=== PATIENT | female | born 1990 | race African-American/Black ===

== ENCOUNTER 2017-12-05 15:45 | Inpatient (IN) | payer BC, OTHER ==
[2017-12-05] VITALS (10 sets, daily range): BP systolic 96–174; BP diastolic 53–973
[~2017-12-05] VITALS: Ht 165.1 cm; Wt 54.4 kg
--- NOTE | ~2017-12-05 | HC ---
[facility] [place] [address] CONSULTATION Name: CHARLENE IRIZARRY Room #: 237-P [facility] IN M.R.#: [id number] Admission: 12/05/17 Attend Phys: Garrick Garcia MD Discharge: Date of : 89 Report #: [id number] THIS REPORT FOR: //name// CC: NO PCP Garrick Garcia ADDENDUM: Regarding the treatment the patient has received during her first overnight stay, she received more insulin than needed plus inadequate fluid intake. The patient's with hyperglycemia and/or ketoacidosis are generally at least 6 or more liters dehydrated and need much more vigorous hydration and very limited insulin. Utilizing insulin for glucose lowering without rehydration can interfere with phosphorus metabolism and subsequent deficient oxygenation in the periphery with adverse side effects. The patient is now receiving vigorous saline hydration to replenish vascular fluids and allow for correction of metabolic abnormalities. <ELECTRONICALLY SIGNED> By: Lenny Deal MD 12/07/17 1742 [id number] Lenny Deal MD /nt
--- NOTE | ~2017-12-05 | HC ---
[facility] [place] [address] CONSULTATION Name: CHARLENE IRIZARRY Room #: 237-P ADM IN M.R.#: [id number] Admission: 12/05/17 Attend Phys: Garrick Garcia MD Discharge: Date of : 89 Report #: [id number] THIS REPORT FOR: //name// CC: NO PCP Garrick Garcia DATE OF SERVICE: 12/06/2017 ENDOCRINE CONSULTATION The patient is at [facility], ICU room 237. SUBJECTIVE: One of several recent admissions for this 27-year-old black female with type 1 diabetes and chronically poor control and chronic poor compliance. The patient states she has had diabetes since she was approximately 12 or 17 years old. She has been on insulin ever since. She does not have a current physician. She does not have health insurance. She has been on a variable dose of aspart insulin t.i.d. with meals and approximately 27 units of Levemir at bedtime. The patient does not follow any specific diet, generally eats 1 or 2 meals per day and snacks frequently. She has limited physical activities. She does not monitor her glucose and does not know when her last A1c was performed or the value. The patient states she began to experience some nausea and vomiting over the 24 hours prior to admission. She also noted and ignored polyuria, polydipsia, fatigue, etc. The patient offers no logical explanation for her chronic poor compliance. Otherwise, patient denies any other chronic medical conditions and does not state any other current medications including any OTF inhibitors or ARBs for renal prophylaxis. She does not remember her last evaluation for lipids, urinary proteinuria or ophthalmology. Since admission, the patient was treated with limited fluids and aggressive insulin. She is also on enoxaparin, acetaminophen, ondansetron, and has been given aspart insulin. THE PATIENT STATES SHE HAS AN "ALLERGY" TO LISPRO INSULIN, but is unable to further elaborate the details of how that was discovered or any other information. Otherwise, the patient is unable to provide any useful prior past or family medical history. OBJECTIVE: LABORATORY DATA: As per chart, hemoglobin A1c has not been performed. The pH (venous, not arterial) was 7.139. The patient initially had some hyperphosphatemia, which has resolved with limited rehydration. The patient's total fluid has been approximately 3 liters since admission. PHYSICAL EXAMINATION: GENERAL: Thin, 27-year-old black female, in no acute distress. The patient is alert and oriented x 3. [address] [address] CONSULTATION Name: CHARLENE IRIZARRY Room #: 237-P [facility] IN M.R.#: [id number] Admission: 12/05/17 Attend Phys: Garrick Garcia MD Discharge: Date of : 89 Report #: [id number] VITAL SIGNS: She is afebrile, heart rate 67 and regular, blood pressure 100/70. SKIN: Warm and moist with decreased turgor. CHEST: Clear to P and A. HEART: Regular rhythm without murmurs, rubs or gallops. ABDOMEN: Benign. EXTREMITIES: There is no edema, cyanosis or clubbing. NEUROLOGIC: Grossly intact. ASSESSMENT: Type 1 diabetes, in chronic poor control with chronic poor compliance. PLAN: 1. I have had a long discussion with the patient about the risks she is causing to her own health and wellbeing by being noncompliant with diabetes and also the unnecessary healthcare expenses compared to much lower expense of strips and followup visits. 2. Will evaluate prior control with hemoglobin A1c. 3. Will place the patient on appropriate diet. Monitor glucose and readjust insulin as needed switching from the hospital's usual lispro to aspart because of her stated allergy. Will also use glargine insulin, which is a true basal insulin rather than the patient's prior Levemir. 4. Will also monitor electrolytes, particularly potassium and phosphorus to ensure that lab abnormalities are resolved and the patient clears her acidosis. There is no determination of serum ketones as yet. Thank you very much for this consultation. I will continue to follow the patient with you on an attempted management and education of diabetes mellitus. <ELECTRONICALLY SIGNED> By: Lenny Deal MD 12/07/17 1742 [id number] Lenny Deal MD /nt
[2017-12-05] MEDS ORDERED: LEVEMIR SUBQ (16:05)
[2017-12-05] MEDS ORDERED: NOVOLOG100 UNIT/1 SUBQ (16:05)
[2017-12-05 16:08] LABS: ABSOLUTE NEUTROPHILS 10.5 thou/uL (1.4-8.2); BASOPHILS 0.3 % (0.0-2.0); HEMATOCRIT 44.1 % (37.0-47.0); HEMOGLOBIN 14.7 gm/dL (12.0-15.0); LYMPHOCYTES 13.4 % (24.0-44.0); MCHC 33.4 g/dL (28.0-37.0); MCV 95.9 fL (80.0-100.0); PLATELET COUNT 335 thou/uL (150-400); POLYS 80.3 % (36.0-66.0); RDW 14.1 % (10.5-14.5); WBC 13.1 thou/uL (4.0-11.0)
[2017-12-05 16:45] LABS: ALBUMIN 4.1 g/dL (3.4-5.0); CALCIUM 9.4 mg/dL (8.5-10.1); CREATININE 1.2 mg/dL (0.6-1.0); DIRECT BILIRUBIN 0.2 mg/dL (<0.1-0.3); POTASSIUM 4.9 mmol/L (3.5-5.1); TOTAL PROTEIN 8.3 g/dL (6.4-8.2)
[2017-12-05 17:15] LABS: URINE BILIRUBIN NEGATIVE (Negative); URINE BLOOD NEGATIVE (Negative); URINE CLARITY CLEAR; URINE COLOR YELLOW; URINE GLUCOSE-RANDOM* 3+ (Negative); URINE KETONES 3+ (Negative); URINE LEUKOCYTES NEGATIVE (Negative); URINE NITRITE NEGATIVE (Negative); URINE PROTEIN (DIPSTICK) NEGATIVE (Negative); URINE UROBILINOGEN 0.2 E.U./dl (0.2-1.0)
[2017-12-05 17:20] LABS: BE(vivo) -17.4 mmol/L (-2 to +3); HCO3 10.4 mmol/L (22.0-26.0); PCO2 VENOUS 31.3 mmHg (41.0-51.0)
[2017-12-05 19:27] LABS: MAGNESIUM 1.7 mg/dL (1.8-2.4); PHOSPHORUS 5.4 mg/dL (2.5-4.9)
[2017-12-05 19:49] LABS: CREATININE 1.1 mg/dL (0.6-1.0); POTASSIUM 4.5 mmol/L (3.5-5.1)
[2017-12-06] VITALS (18 sets, daily range): BP systolic 77–118; BP diastolic 50–81
[2017-12-06] LABS: ALBUMIN 3.7 g/dL (3.4-5.0); CALCIUM 8.7 mg/dL (8.5-10.1); MAGNESIUM 2.3 mg/dL (1.8-2.4); PHOSPHORUS 2.6 mg/dL (2.5-4.9); POTASSIUM 4.2 mmol/L (3.5-5.1)
[2017-12-06 04:35] LABS: HEMATOCRIT 36.2 % (37.0-47.0); MCH 31.3 pg (26.0-34.0); MCHC 32.8 g/dL (28.0-37.0); MCV 95.7 fL (80.0-100.0); RBC 3.78 mil/uL (4.20-5.00); RDW 13.6 % (10.5-14.5); WBC 15.1 thou/uL (4.0-11.0)
[2017-12-06 04:45] LABS: CALCIUM 8.1 mg/dL (8.5-10.1); CREATININE 0.9 mg/dL (0.6-1.0); MAGNESIUM 2.1 mg/dL (1.8-2.4); PHOSPHORUS 2.7 mg/dL (2.5-4.9); POTASSIUM 3.9 mmol/L (3.5-5.1)
[2017-12-06 04:59] LABS: HEMOGLOBIN 11.9 gm/dL (12.0-15.0)
[2017-12-06 10:05] LABS: DIRECT BILIRUBIN 0.2 mg/dL (<0.1-0.3); TOTAL BILIRUBIN 0.8 mg/dL (<0.1-1.0); TOTAL PROTEIN 6.6 g/dL (6.4-8.2)
[2017-12-06 11:33] LABS: CALCIUM 8.4 mg/dL (8.5-10.1); CREATININE 0.9 mg/dL (0.6-1.0); PHOSPHORUS 2.9 mg/dL (2.5-4.9); POTASSIUM 3.9 mmol/L (3.5-5.1)
[2017-12-06 11:55] LABS: BE(vivo) -11.5 mmol/L (-2 to +3); HCO3 13.3 mmol/L (22.0-26.0); PCO2 27.2 mmHg (35.0-45.0); PO2 110.9 mmHg (80.0-100.0); pH 7.306 (7.360-7.450); sO2 97.7 % (92.0-98.0)
[2017-12-06 17:17] LABS: CALCIUM 8.3 mg/dL (8.5-10.1); CREATININE 0.9 mg/dL (0.6-1.0); PHOSPHORUS 2.2 mg/dL (2.5-4.9); POTASSIUM 4.1 mmol/L (3.5-5.1)
[2017-12-06 20:35] LABS: CREATININE 0.8 mg/dL (0.6-1.0); POTASSIUM 3.9 mmol/L (3.5-5.1)
[2017-12-07] VITALS (18 sets, daily range): BP systolic 100–139; BP diastolic 62–121
[2017-12-07 00:06] LABS: GLYCOHEMOGLOBIN (HGB A1C) 10.6 % (4.8-5.6)
[2017-12-07 06:41] LABS: HEMOGLOBIN 11.2 gm/dL (12.0-15.0); MCH 32.1 pg (26.0-34.0); MCV 94.6 fL (80.0-100.0); PLATELET COUNT 188 thou/uL (150-400); RBC 3.49 mil/uL (4.20-5.00); RDW 13.4 % (10.5-14.5); WBC 6.6 thou/uL (4.0-11.0)
[2017-12-07 06:53] LABS: ALBUMIN 2.6 g/dL (3.4-5.0); CALCIUM 7.9 mg/dL (8.5-10.1); CREATININE 0.6 mg/dL (0.6-1.0); POTASSIUM 3.4 mmol/L (3.5-5.1); TOTAL PROTEIN 5.5 g/dL (6.4-8.2)
[2017-12-07 07:34] LABS: BE(vivo) -7.1 mmol/L (-2 to +3); HCO3 17.4 mmol/L (22.0-26.0); PCO2 32.4 mmHg (35.0-45.0); PO2 98.9 mmHg (80.0-100.0); pH 7.349 (7.360-7.450); sO2 97.3 % (92.0-98.0)
[2017-12-07 08:22] LABS: ABSOLUTE NEUTROPHILS 2.7 thou/uL (1.4-8.2); PLATELET ESTIMATE NORMAL
[2017-12-07 21:05] LABS: CALCIUM 8.8 mg/dL (8.5-10.1); CREATININE 0.7 mg/dL (0.6-1.0); POTASSIUM 3.3 mmol/L (3.5-5.1)
[2017-12-08 03:35] VITALS: BP 94/54
[2017-12-08 07:40] VITALS: BP 109/72
[2017-12-08 15:55] VITALS: BP 114/74
[2017-12-08] MEDS ORDERED: LANTUS100 UNIT/M SUBQ (17:24)
[2017-12-08 17:33] VITALS: BP 114/74
== END 2017-12-08 18:25 | disposition home or self-care (01) | DRG 638 ==
LOC: ER 15:45 → EROBS 17:41 → ICU 17:41 → 4W 12-07 18:10
PROVIDERS: Emergency Medicine; Hospitalist; Internal Medicine Endocrinology, Diabetes & Metabolism; Nurse Practitioner Family; Physician Assistant
DX: E10.10 Type 1 diabetes mellitus with ketoacidosis without coma (principal); N17.9 Acute kidney failure, unspecified; R74.0 Nonspecific elevation of levels of transaminase and lactic acid dehydrogenase [LDH]; D72.829 Elevated white blood cell count, unspecified; E86.0 Dehydration; Z79.899 Other long term (current) drug therapy; Z88.8 Allergy status to other drugs, medicaments and biological substances
CPT/HCPCS: 10047; 10078

== ENCOUNTER 2019-04-05 08:20 | Emergency (ER) | payer BC, OTHER ==
[~2019-04-05] VITALS: Ht 165.1 cm; Wt 59.0 kg
[~2019-04-05 08:20] MED LIST: LANTUS100 UNIT/M SUBQ; LEVEMIR SUBQ; NOVOLOG100 UNIT/1 SUBQ
[2019-04-05 13:38] VITALS: BP 115/75
== END 2019-04-05 13:38 | disposition home or self-care (01) ==
LOC: ER 08:20
DX: M25.552 Pain in left hip (principal); N92.0 Excessive and frequent menstruation with regular cycle; M25.562 Pain in left knee; E10.9 Type 1 diabetes mellitus without complications; Z88.8 Allergy status to other drugs, medicaments and biological substances

== ENCOUNTER 2020-02-15 17:36 | Emergency (ER) | payer OTHER, BC ==
[~2020-02-15] VITALS: Ht 165.1 cm; Wt 59.0 kg
[2020-02-15] MEDS ORDERED: MOBIC7.5 MG PO (19:18)
[2020-02-15] MEDS ORDERED: CYCLOBENZAPRINE5 MG PO (19:18)
[2020-02-15 20:00] VITALS: BP 108/57
== END 2020-02-15 20:40 | disposition home or self-care (01) ==
LOC: ER 17:36
DX: S40.012A Contusion of left shoulder, initial encounter (principal); S16.1XXA Strain of muscle, fascia and tendon at neck level, initial encounter; M79.645 Pain in left finger(s); E10.9 Type 1 diabetes mellitus without complications; Z79.4 Long term (current) use of insulin; Z88.8 Allergy status to other drugs, medicaments and biological substances; V49.49XA Driver injured in collision with other motor vehicles in traffic accident, initial encounter; Y93.89 Activity, other specified; Y92.410 Unspecified street and highway as the place of occurrence of the external cause; Y99.8 Other external cause status

== ENCOUNTER 2020-10-10 13:04 | Emergency (ER) | payer BC, OTHER ==
[~2020-10-10] VITALS: Ht 165.1 cm; Wt 59.0 kg
[~2020-10-10 13:04] MED LIST changes: +CYCLOBENZAPRINE5 MG PO; +MOBIC7.5 MG PO
[2020-10-10 14:28] LABS: HEMATOCRIT 38.9 % (37.0-47.0); HEMOGLOBIN 12.8 gm/dL (12.0-15.0); MCH 32.5 pg (26.0-34.0); MCV 98.7 fL (80.0-100.0); RBC 3.94 mil/uL (4.20-5.00); RDW 13.3 % (10.5-14.5); WBC 4.7 thou/uL (4.0-11.0)
[2020-10-10 16:48] VITALS: BP 115/54
== END 2020-10-10 17:13 | disposition home or self-care (01) ==
LOC: ER 13:04
PROVIDERS: Nurse Practitioner Family
DX: O20.0 Threatened abortion (principal); O24.911 Unspecified diabetes mellitus in pregnancy, first trimester; Z79.4 Long term (current) use of insulin; Z88.8 Allergy status to other drugs, medicaments and biological substances; Z3A.00 Weeks of gestation of pregnancy not specified